=== PATIENT | female | born 1975 | race Caucasian/White ===

== ENCOUNTER 2016-09-06 03:28 | Emergency (ER) | payer OTHER ==
[~2016-09-06] VITALS: Ht 162.6 cm; Wt 59.6 kg
[~2016-09-06 03:28] MED LIST: ARMOUR THYROID60 M1 PO; ATARAX,VISTARIL25 MG PO; ATIVAN0.5 MG PO; DOXYCYCLINE MO100 MG PO; FENTANYL1 EAC2 TD; LEXAPRO10 MG PO; LIBRIUM25 MG PO; LORAZEPAM0.5 MG PO; TRAZODONE HCL100 MG PO
[2016-09-06 04:12] LABS: HEMATOCRIT 37.7 % (36.0-46.0); MCH 26.3 PG (29.0-34.0); MCHC 32.4 G/DL (30.0-36.0); MCV 81.4 FL (83-99); MEAN PLAT.VOLUME 10.8 uM^3 (9.5-12.4); PLATELET COUNT 255 K/uL (156-360); RBC DIS.WIDTH-CV 16.6 % (11.8-14.6); RED BLOOD COUNT 4.63 M/uL (3.80-5.20); WHITE BLOOD COUNT 8.3 K/uL (4.1-10.2)
[2016-09-06 04:25] LABS: CHLORIDE 102 mEq/L (99-109); POTASSIUM 3.7 mEq/L (3.7-5.4); SODIUM 138 mEq/L (136-147)
[2016-09-06 04:26] LABS: GLUCOSE 82 mg/dL (70-99)
[2016-09-06 04:28] LABS: ANION GAP 20 MEQ/L (2-14)
[2016-09-06 04:30] LABS: GFR ESTIMATE (CALCULATED) > 59 mL/min/; SERUM ETHYL ALCOHOL 295 mg/dL
[2016-09-06 04:31] LABS: UREA NITROGEN (BUN) 8 mg/dL (9-23)
[2016-09-06 06:48] VITALS: BP 102/54
[2016-09-16] MEDS ORDERED: LEVO-T50 MCG PO (12:01)
[2016-09-16] MEDS ORDERED: LORAZEPAM0.5 MG PO (12:01)
== END 2016-09-06 06:51 | disposition home or self-care (01) ==
LOC: EME 03:28
PROVIDERS: Emergency Medicine
DX: F10.129 Alcohol abuse with intoxication, unspecified (principal); R11.2 Nausea with vomiting, unspecified; E86.0 Dehydration; Y90.8 Blood alcohol level of 240 mg/100 ml or more; Z87.891 Personal history of nicotine dependence
CPT/HCPCS: 80048; 85027; 99281; 99285; G0480; J2405; J7030

== ENCOUNTER 2016-09-18 08:48 | Day surgery (SDC) | payer OTHER ==
[~2016-09-18] VITALS: Ht 162.6 cm; Wt 52.0 kg
[~2016-09-18 08:48] MED LIST changes: +LEVO-T50 MCG PO
[2016-09-18 09:24] VITALS: BP 101/69
[2016-09-18 10:30] LABS: METH RESISTANT S AUREUS PCR NEGATIVE (NEGATIVE)
[2016-09-18 10:31] LABS: PROBE CHECK PASS; SPECIMEN PROCESSING CONTROL PASS
[2016-09-18 12:52] VITALS: BP 110/75
[2016-09-18 13:55] VITALS: BP 141/71
== END 2016-09-18 14:18 | disposition home or self-care (01) ==
LOC: SDC 08:48
PROVIDERS: Obstetrics & Gynecology Gynecology
DX: N92.0 Excessive and frequent menstruation with regular cycle (principal); N84.0 Polyp of corpus uteri; N94.6 Dysmenorrhea, unspecified; N80.0 Endometriosis of uterus; D25.1 Intramural leiomyoma of uterus; N85.4 Malposition of uterus; E06.5 Other chronic thyroiditis; E03.9 Hypothyroidism, unspecified; E78.5 Hyperlipidemia, unspecified; Z82.49 Family history of ischemic heart disease and other diseases of the circulatory system; Z80.1 Family history of malignant neoplasm of trachea, bronchus and lung; Z82.62 Family history of osteoporosis; Z88.0 Allergy status to penicillin
CPT/HCPCS: 87641; 88305; J0690; J1100; J1885; J2250; J2405; J3010